=== PATIENT | male | born 1985 | race Two or more races ===

== ENCOUNTER 2018-10-12 21:42 | Emergency (ER) | payer MEDICAID ==
[~2018-10-12] VITALS: Ht 162.6 cm; Wt 84.5 kg
[2018-10-12] MEDS ORDERED: SODIUM CHLORIDE 0.9% 1,000 ML IV ONE (22:15)
[2018-10-12 22:27] LABS: EOSINOPHILS % (AUTO) 3.2 % (1.0-6.0); HEMATOCRIT 39.6 % (41-53); HEMOGLOBIN 13.1 g/dL (13.5-17.5); LYMPHOCYTES # (AUTO) 2.4 K/uL (1.0-4.8); LYMPHOCYTES % (AUTO) 39.8 % (22.0-44.0); MEAN CORPUSCULAR HEMOGLOBIN 30.6 pg (26.0-34.0); MEAN CORPUSCULAR VOLUME 93 fL (80-100); MONOCYTES # (AUTO) 0.5 K/uL (0.1-1.0); MONOCYTES % (AUTO) 7.7 % (2.0-9.0); NEUTROPHILS # (AUTO) 2.9 K/uL (1.8-7.7); NEUTROPHILS % (AUTO) 48.3 % (40.0-70.0); PLATELET COUNT (AUTO) 240 K/uL (150-450); RED BLOOD CELL COUNT(AUTO) 4.27 MIL/uL (4.50-5.90); RED CELL DISTRIBUTION WIDTH 14.7 % (11.5-14.5)
[2018-10-12 22:58] LABS: ANION GAP 15 mmol/L (8-16); CALCIUM, TOTAL 8.3 mg/dL (8.8-10.5); CARBON DIOXIDE 23 mmol/L (22-29); CHLORIDE 105 mmol/L (98-107); CREATININE 0.91 mg/dL (0.60-1.30); GLOMERULAR FILTR. RATE CALC > 60 mL/min (>60); GLUCOSE,RANDOM 138 mg/dL (70-110); POTASSIUM 3.3 mmol/L (3.5-5.1); SODIUM SERUM 143 mmol/L (136-145); UREA NITROGEN, BLOOD 9 mg/dL (7-18)
[2018-10-12 23:05] LABS: ALANINE AMINOTRANSFERASE 109 U/L (12-78); ALKALINE PHOSPHATASE 90 U/L (46-116); ASPARTATE AMINOTRANSFERASE 49 U/L (15-37); BILIRUBIN,TOTAL 0.4 mg/dL (0.1-1.0); TOTAL PROTEIN, SERUM 6.9 g/dL (6.4-8.2)
[2018-10-12 23:06] LABS: ACETAMINOPHEN < 2 mcg/mL (10-30)
[2018-10-12] MEDS ORDERED: POTASSIUM CHLORIDE 20 MEQ ER TABLET PO ONE (23:15)
[2018-10-12 23:24] LABS: SALICYLATE 3.7 mg/dL (2.8-20.0)
[2018-10-13 05:12] VITALS: BP 112/60
== END 2018-10-13 05:15 | disposition home or self-care (01) ==
LOC: EMS 21:44
DX: F10.129 Alcohol abuse with intoxication, unspecified (principal); R41.0 Disorientation, unspecified; F19.10 Other psychoactive substance abuse, uncomplicated; F17.210 Nicotine dependence, cigarettes, uncomplicated; Y90.8 Blood alcohol level of 240 mg/100 ml or more
CPT/HCPCS: 36415; 80053; 85025; 96360; 99285; 99406; G0480; G0481

== ENCOUNTER 2019-04-25 17:51 | Inpatient (IN) | payer MEDICAID ==
[~2019-04-25] VITALS: Ht 170.2 cm; Wt 94.5 kg
[2019-04-25 18:50] LABS: BASOPHILS % (AUTO) 0.5 % (0.0-2.0); EOSINOPHILS % (AUTO) 0.1 % (1.0-6.0); HEMATOCRIT 43.4 % (41-53); HEMOGLOBIN 14.6 g/dL (13.5-17.5); LYMPHOCYTES # (AUTO) 1.3 K/uL (1.0-4.8); LYMPHOCYTES % (AUTO) 15.4 % (22.0-44.0); MEAN CORPUSCULAR HEMOGLOBIN 30.8 pg (26.0-34.0); MEAN CORPUSCULAR HGB CONC 33.7 G/dL (31.0-37.0); MEAN CORPUSCULAR VOLUME 91 fL (80-100); MONOCYTES # (AUTO) 0.4 K/uL (0.1-1.0); MONOCYTES % (AUTO) 5.1 % (2.0-9.0); NEUTROPHILS # (AUTO) 6.9 K/uL (1.8-7.7); NEUTROPHILS % (AUTO) 78.9 % (40.0-70.0); PLATELET COUNT (AUTO) 250 K/uL (150-450); RED BLOOD CELL COUNT(AUTO) 4.75 MIL/uL (4.50-5.90); RED CELL DISTRIBUTION WIDTH 14.3 % (11.5-14.5)
[2019-04-25 19:06] LABS: ANION GAP 11 mmol/L (8-16); CALCIUM, TOTAL 9.3 mg/dL (8.8-10.5); CARBON DIOXIDE 23 mmol/L (22-29); CHLORIDE 104 mmol/L (98-107); CREATININE 1.05 mg/dL (0.60-1.30); GLOMERULAR FILTR. RATE CALC > 60 mL/min (>60); GLUCOSE,RANDOM 127 mg/dL (70-110); SODIUM SERUM 138 mmol/L (136-145); UREA NITROGEN, BLOOD 14 mg/dL (7-18)
[2019-04-25 19:11] LABS: ALANINE AMINOTRANSFERASE 57 U/L (12-78); ALBUMIN 4.1 g/dL (3.4-5.0); ALKALINE PHOSPHATASE 90 U/L (46-116); ASPARTATE AMINOTRANSFERASE 20 U/L (15-37); BILIRUBIN,TOTAL 0.2 mg/dL (0.1-1.0); TOTAL PROTEIN, SERUM 7.3 g/dL (6.4-8.2)
[2019-04-25 19:59] LABS: AMPHET/METH SCREEN,URINE NEGATIVE (NEGATIVE); BARBITURATE SCREEN, URINE NEGATIVE (NEGATIVE); BENZODIAZEPINES SCREEN,URINE NEGATIVE (NEGATIVE); CANNABINOID SCREEN,URINE POSITIVE (NEGATIVE); COCAINE SCREEN,URINE NEGATIVE (NEGATIVE); METHADONE SCREEN, URINE NEGATIVE (NEGATIVE); OPIATE SCREEN,URINE NEGATIVE (NEGATIVE)
[2019-04-25 20:01] LABS: PHENCYCLIDINE SCREEN,URINE NEGATIVE (NEGATIVE)
[2019-04-25] MEDS ORDERED: HALOPERIDOL 5 MG TABLET PO PRN (20:15)
[2019-04-25] MEDS ORDERED: INFLUENZA VIRUS VACCINE QVS 2019-20 (3YR+)/PF 60 MCG/0.5 ML SYRINGE IM ONE (21:45)
[2019-04-25] MEDS: ZOLPIDEM TARTRATE 10 MG TABLET PO PRN (21:49)
[2019-04-25 21:57] VITALS: BP 130/70
[2019-04-26 08:00] VITALS: BP 96/50
[2019-04-26 08:32] LABS: CHOL/HDL RATIO 5.8 (4.2-7.3)
[2019-04-26] MEDS: NICOTINE 7 MG/24 HOUR PATCH TD SCH (09:52)
[2019-04-26] MEDS ORDERED: MAGNESIUM HYDROXIDE SUSPENSION 30 ML UDCUP PO PRN (10:45)
[2019-04-26] MEDS ORDERED: PETROLATUM,WHITE 28 GM JELLY TP PRN (10:45)
[2019-04-26] MEDS ORDERED: ONDANSETRON HCL 4 MG TABLET PO PRN (10:45)
[2019-04-26] MEDS ORDERED: GuaiFENesin/D-METHORPHAN [SUGAR-FREE] 200-20MG/10 ML SYRUP UDCUP PO PRN (10:45)
[2019-04-26] MEDS ORDERED: ACETAMINOPHEN 325 MG TABLET PO PRN (10:45)
[2019-04-26] MEDS ORDERED: CloNIDine HCL 0.1 MG TABLET PO PRN (10:45)
[2019-04-26] MEDS ORDERED: ALBUTEROL SULFATE HFA 90 MCG/PUFF 8 GM INHALER IH PRN (10:45)
[2019-04-26] MEDS ORDERED: MAG HYDROX/AL HYDROX/SIMETH ES 30 ML SUSPENSION UDCUP PO PRN (10:45)
[2019-04-26] MEDS ORDERED: DOCUSATE SODIUM 100 MG CAPSULE PO PRN (10:45)
[2019-04-26] MEDS ORDERED: IBUPROFEN 400 MG TABLET PO PRN (10:45)
[2019-04-26] MEDS ORDERED: NICOTINE 14 MG/24 HOUR PATCH TD PRN (10:45)
[2019-04-26 16:58] VITALS: BP 131/67
[2019-04-26] MEDS: LORazepam 2 MG TABLET PO PRN (17:03)
[2019-04-27 06:49] VITALS: BP 121/70
[2019-04-27 08:05] VITALS: BP 109/57
[2019-04-27] MEDS: NICOTINE 7 MG/24 HOUR PATCH TD SCH (09:34)
[2019-04-27] MEDS: CITALOPRAM HYDROBROMIDE 20 MG TABLET PO SCH (14:23)
[2019-04-27 15:35] VITALS: BP 122/86
[2019-04-27] MEDS: LORazepam 2 MG TABLET PO PRN (15:38)
[2019-04-27] MEDS: LOPERAMIDE HCL 2 MG CAPSULE PO PRN (15:38)
[2019-04-27 16:02] VITALS: BP 122/86
[2019-04-27] MEDS: ZOLPIDEM TARTRATE 10 MG TABLET PO PRN (20:25)
[2019-04-28] MEDS: CITALOPRAM HYDROBROMIDE 20 MG TABLET PO SCH (09:10)
[2019-04-28] MEDS: NICOTINE 7 MG/24 HOUR PATCH TD SCH (09:10)
[2019-04-28 09:39] VITALS: BP 107/60
[2019-04-28 17:18] VITALS: BP 115/8
[2019-04-28] MEDS: ZOLPIDEM TARTRATE 10 MG TABLET PO PRN (20:21)
[2019-04-29] MEDS: CITALOPRAM HYDROBROMIDE 20 MG TABLET PO SCH (08:12)
[2019-04-29] MEDS: NICOTINE 7 MG/24 HOUR PATCH TD SCH (08:13)
[2019-04-29 09:26] VITALS: BP 115/60
[2019-04-29] MEDS: LORazepam 2 MG TABLET PO PRN (12:37)
[2019-04-29 16:41] VITALS: BP 111/60
[2019-04-29] MEDS: BACITRACIN 28.4 GM OINTMENT TP SCH (21:14)
[2019-04-29] MEDS: ZOLPIDEM TARTRATE 10 MG TABLET PO PRN (21:14)
[2019-04-30] MEDS: CITALOPRAM HYDROBROMIDE 20 MG TABLET PO SCH (08:18)
[2019-04-30] MEDS: BACITRACIN 28.4 GM OINTMENT TP SCH ×2 (08:18→16:11)
[2019-04-30] MEDS: NICOTINE 7 MG/24 HOUR PATCH TD SCH (08:18)
[2019-04-30 09:08] VITALS: BP 119/73
[2019-04-30] MEDS: LORazepam 2 MG TABLET PO PRN (16:12)
[2019-04-30 16:30] VITALS: BP 122/76
[2019-05-01] MEDS: CITALOPRAM HYDROBROMIDE 20 MG TABLET PO SCH (08:13)
[2019-05-01] MEDS: MULTIVITAMINS WITH IRON TABLET PO SCH (08:13)
[2019-05-01] MEDS: NICOTINE 7 MG/24 HOUR PATCH TD SCH (08:14)
[2019-05-01] MEDS: BACITRACIN 28.4 GM OINTMENT TP SCH ×2 (08:14→16:21)
[2019-05-01 08:43] VITALS: BP 116/59
[2019-05-01 13:19] VITALS: BP 126/68
[2019-05-01 16:42] VITALS: BP 122/70
[2019-05-01] MEDS: LORazepam 2 MG TABLET PO PRN (16:42)
[2019-05-01 17:50] VITALS: BP 122/70
[2019-05-02] MEDS: MULTIVITAMINS WITH IRON TABLET PO SCH (08:56)
[2019-05-02] MEDS: CITALOPRAM HYDROBROMIDE 20 MG TABLET PO SCH (08:56)
[2019-05-02] MEDS: NICOTINE 7 MG/24 HOUR PATCH TD SCH (08:57)
[2019-05-02] MEDS: BACITRACIN 28.4 GM OINTMENT TP SCH ×2 (08:57→16:35)
[2019-05-02 09:11] VITALS: BP 143/74
[2019-05-02 16:34] VITALS: BP 133/85
[2019-05-02] MEDS: LORazepam 2 MG TABLET PO PRN (18:45)
[2019-05-03] MEDS: CITALOPRAM HYDROBROMIDE 20 MG TABLET PO SCH (09:06)
[2019-05-03] MEDS: NICOTINE 7 MG/24 HOUR PATCH TD SCH (09:06)
[2019-05-03] MEDS: MULTIVITAMINS WITH IRON TABLET PO SCH (09:06)
[2019-05-03] MEDS: BACITRACIN 28.4 GM OINTMENT TP SCH ×2 (09:07→17:08)
[2019-05-03 09:23] VITALS: BP 111/60
[2019-05-03 17:49] VITALS: BP 115/64
[2019-05-03] MEDS: LORazepam 2 MG TABLET PO PRN (20:55)
[2019-05-04 08:30] VITALS: BP 126/72
[2019-05-04] MEDS: BACITRACIN 28.4 GM OINTMENT TP SCH ×2 (09:07→16:20)
[2019-05-04] MEDS: MULTIVITAMINS WITH IRON TABLET PO SCH (09:08)
[2019-05-04] MEDS: CITALOPRAM HYDROBROMIDE 20 MG TABLET PO SCH (09:08)
[2019-05-04] MEDS: NICOTINE 7 MG/24 HOUR PATCH TD SCH (09:08)
[2019-05-04] MEDS: LORazepam 2 MG TABLET PO PRN (15:52)
[2019-05-04 16:39] VITALS: BP 126/104
[2019-05-04] MEDS: ZOLPIDEM TARTRATE 10 MG TABLET PO PRN (20:31)
[2019-05-05 08:34] VITALS: BP 138/70
[2019-05-05] MEDS: CITALOPRAM HYDROBROMIDE 20 MG TABLET PO SCH (08:42)
[2019-05-05] MEDS: MULTIVITAMINS WITH IRON TABLET PO SCH (08:42)
[2019-05-05] MEDS: NICOTINE 7 MG/24 HOUR PATCH TD SCH (08:43)
[2019-05-05] MEDS: BACITRACIN 28.4 GM OINTMENT TP SCH ×2 (09:00→16:50)
[2019-05-05 16:28] VITALS: BP 116/66
[2019-05-05] MEDS: ZOLPIDEM TARTRATE 10 MG TABLET PO PRN (20:07)
[2019-05-06 05:04] VITALS: BP 113/80
[2019-05-06] MEDS: LORazepam 2 MG TABLET PO PRN ×2 (05:06→12:09)
[2019-05-06 09:28] VITALS: BP 111/58
[2019-05-06] MEDS: NICOTINE 7 MG/24 HOUR PATCH TD SCH (10:49)
[2019-05-06] MEDS: MULTIVITAMINS WITH IRON TABLET PO SCH (10:49)
[2019-05-06] MEDS: CITALOPRAM HYDROBROMIDE 20 MG TABLET PO SCH (10:49)
[2019-05-06] MEDS: BACITRACIN 28.4 GM OINTMENT TP SCH ×2 (10:50→16:28)
[2019-05-06 17:35] VITALS: BP 119/70
[2019-05-06] MEDS: ZOLPIDEM TARTRATE 10 MG TABLET PO PRN (20:06)
[2019-05-07 08:00] VITALS: BP 99/59
[2019-05-07] MEDS: MULTIVITAMINS WITH IRON TABLET PO SCH (09:14)
[2019-05-07] MEDS: BACITRACIN 28.4 GM OINTMENT TP SCH ×2 (09:15→16:56)
[2019-05-07] MEDS: CITALOPRAM HYDROBROMIDE 20 MG TABLET PO SCH (09:15)
[2019-05-07] MEDS: NICOTINE 7 MG/24 HOUR PATCH TD SCH (09:15)
[2019-05-07 17:03] VITALS: BP 120/75
[2019-05-07] MEDS: ZOLPIDEM TARTRATE 10 MG TABLET PO PRN (20:29)
[2019-05-08 08:30] VITALS: BP 103/56
[2019-05-08] MEDS: MULTIVITAMINS WITH IRON TABLET PO SCH (09:21)
[2019-05-08] MEDS: NICOTINE 7 MG/24 HOUR PATCH TD SCH (09:21)
[2019-05-08] MEDS: CITALOPRAM HYDROBROMIDE 20 MG TABLET PO SCH (09:21)
[2019-05-08] MEDS: BACITRACIN 28.4 GM OINTMENT TP SCH ×2 (09:22→16:37)
[2019-05-08] MEDS: LOPERAMIDE HCL 2 MG CAPSULE PO PRN (13:04)
[2019-05-08] MEDS: ZOLPIDEM TARTRATE 10 MG TABLET PO PRN (20:06)
[2019-05-08 22:55] VITALS: BP 118/74
[2019-05-09 09:04] VITALS: BP 124/63
[2019-05-09] MEDS: MULTIVITAMINS WITH IRON TABLET PO SCH (09:29)
[2019-05-09] MEDS: CITALOPRAM HYDROBROMIDE 20 MG TABLET PO SCH (09:29)
[2019-05-09] MEDS: BACITRACIN 28.4 GM OINTMENT TP SCH ×2 (09:29→16:34)
[2019-05-09] MEDS: NICOTINE 7 MG/24 HOUR PATCH TD SCH (09:36)
[2019-05-09] MEDS: LORazepam 2 MG TABLET PO PRN (20:17)
[2019-05-09 23:09] VITALS: BP 126/79
[2019-05-10 08:00] VITALS: BP 100/61
[2019-05-10] MEDS: MULTIVITAMINS WITH IRON TABLET PO SCH (09:41)
[2019-05-10] MEDS: NICOTINE 7 MG/24 HOUR PATCH TD SCH (09:41)
[2019-05-10] MEDS: CITALOPRAM HYDROBROMIDE 20 MG TABLET PO SCH (09:41)
[2019-05-10 16:00] VITALS: BP 110/66
[2019-05-10] MEDS: ZOLPIDEM TARTRATE 10 MG TABLET PO PRN (21:09)
[2019-05-10] MEDS: LORazepam 2 MG TABLET PO PRN (22:38)
[2019-05-11 08:00] VITALS: BP 107/55
[2019-05-11] MEDS: NICOTINE 7 MG/24 HOUR PATCH TD SCH (09:10)
[2019-05-11] MEDS: CITALOPRAM HYDROBROMIDE 20 MG TABLET PO SCH (09:10)
[2019-05-11] MEDS: MULTIVITAMINS WITH IRON TABLET PO SCH (09:10)
[2019-05-11 16:35] VITALS: BP 100/50
[2019-05-11] MEDS: ZOLPIDEM TARTRATE 10 MG TABLET PO PRN (20:16)
[2019-05-11] MEDS: LORazepam 2 MG TABLET PO PRN (21:58)
[2019-05-12 08:00] VITALS: BP 116/68
[2019-05-12] MEDS: MULTIVITAMINS WITH IRON TABLET PO SCH (09:03)
[2019-05-12] MEDS: NICOTINE 7 MG/24 HOUR PATCH TD SCH (09:03)
[2019-05-12] MEDS: CITALOPRAM HYDROBROMIDE 20 MG TABLET PO SCH (09:03)
[2019-05-12 16:58] VITALS: BP 102/55
[2019-05-12] MEDS: LORazepam 2 MG TABLET PO PRN (17:57)
[2019-05-12] MEDS: ZOLPIDEM TARTRATE 10 MG TABLET PO PRN (22:30)
[2019-05-13 08:00] VITALS: BP 119/72
[2019-05-13] MEDS: MULTIVITAMINS WITH IRON TABLET PO SCH (08:39)
[2019-05-13] MEDS: CITALOPRAM HYDROBROMIDE 20 MG TABLET PO SCH (08:39)
[2019-05-13] MEDS: NICOTINE 7 MG/24 HOUR PATCH TD SCH (08:43)
[2019-05-13 16:52] VITALS: BP 108/72
[2019-05-13] MEDS: LORazepam 2 MG TABLET PO PRN (21:09)
[2019-05-13] MEDS: ZOLPIDEM TARTRATE 10 MG TABLET PO PRN (22:26)
[2019-05-14 04:32] VITALS: BP 119/75
[2019-05-14 08:00] VITALS: BP 110/55
[2019-05-14] MEDS ORDERED: CITA10TA68 PO (08:29)
[2019-05-14] MEDS ORDERED: NICO-800 TD (08:31)
[2019-05-14] MEDS ORDERED: MULT-700 PO (08:32)
[2019-05-14] MEDS: CITALOPRAM HYDROBROMIDE 20 MG TABLET PO SCH (09:30)
[2019-05-14] MEDS: MULTIVITAMINS WITH IRON TABLET PO SCH (09:30)
[2019-05-14] MEDS: NICOTINE 7 MG/24 HOUR PATCH TD SCH (09:30)
== END 2019-05-14 10:00 | disposition home or self-care (01) | DRG 881 ==
LOC: EMS 17:52 → 3EI 20:38
PROVIDERS: ADMIT Psychiatry & Neurology Psychiatry; ATTEND Psychiatry & Neurology Psychiatry
PROC: 3E0234Z Introduction of Serum, Toxoid and Vaccine into Muscle, Percutaneous Approach (ICD-10-PCS; principal; 2019-04-25)
DX: F32.9 Major depressive disorder, single episode, unspecified (principal); R45.851 Suicidal ideations; F10.10 Alcohol abuse, uncomplicated; F22 Delusional disorders; Z79.899 Other long term (current) drug therapy; Z23 Encounter for immunization
CPT/HCPCS: 83036; 90686; G0480